=== PATIENT | female | born 1990 | race Caucasian/White ===

== ENCOUNTER 2023-07-11 16:03 | Emergency (ER) | payer SELFPAY ==
[2023-07-11 17:44] LABS: BASOPHILS ABSOLUTE AUTO 0.04 K/uL (0.00-0.20); BASOPHILS PERCENT AUTO 0.4 % (0.0-1.0); EOSINOPHILS ABSOLUTE AUTO 0.08 K/uL (0.00-0.45); EOSINOPHILS PERCENT AUTO 0.8 % (0.0-6.0); HEMATOCRIT 38.8 % (37.0-47.0); HEMOGLOBIN 13.8 g/dL (12.0-16.0); IMMATURE GRAN ABSOLUTE AUTO 0.05 K/uL (0.00-0.05); IMMATURE GRAN PERCENT AUTO 0.5 % (0.0-0.4); LYMPHOCYTES ABSOLUTE AUTO 2.44 K/uL (1.00-4.80); LYMPHOCYTES PERCENT AUTO 25.4 % (24.0-44.0); MEAN CORPUSCULAR HEMOGLOBIN 31.1 pg (28.0-32.0); MEAN CORPUSCULAR HGB CONC 35.6 g/dL (32.0-36.0); MEAN CORPUSCULAR VOLUME 87.4 fL (83.0-99.0); MEAN PLATELET VOLUME 10.1 fL (9.4-12.3); MONOCYTES ABSOLUTE AUTO 0.62 K/uL (0.00-0.80); MONOCYTES PERCENT AUTO 6.4 % (0.0-8.0); NEUTROPHILS ABSOLUTE AUTO 6.39 K/uL (1.80-7.70); NEUTROPHILS PERCENT AUTO 66.5 % (41.0-71.0); PLATELET COUNT,PLT 254 K/uL (150-400); RED BLOOD CELL COUNT 4.44 M/uL (4.10-5.30); WHITE BLOOD CELL COUNT,WBC 9.62 K/uL (3.9-11.3)
[2023-07-11 17:45] LABS: BILIRUBIN,URINE NEGATIVE (NEGATIVE); COLOR,URINE YELLOW; GLUCOSE,URINE NEGATIVE (NEGATIVE); KETONES,URINE NEGATIVE (NEGATIVE); LEUKOCYTE ESTERASE,URINE NEGATIVE (NEGATIVE); NITRITE,URINE NEGATIVE (NEGATIVE); OCCULT BLOOD,URINE MODERATE (NEGATIVE); PROTEIN,URINE NEGATIVE (NEGATIVE)
[2023-07-11 17:52] LABS: APPEARANCE,URINE CLOUDY
[2023-07-11 18:13] LABS: BACTERIA,URINE FEW (NEGATIVE); EPITHELIAL CELLS,URINE MODERATE (NONE-FEW); WBC,URINE 0-1 (0-5/HPF)
[2023-07-11 18:18] LABS: A/G RATIO 1.1 (0.9-1.6); ALBUMIN 4.1 g/dL (3.4-5.0); BILIRUBIN TOTAL 0.5 mg/dL (0.2-1.0); CALCIUM 9.5 mg/dL (8.5-10.1); CREATININE 0.8 mg/dL (0.6-1.0); POTASSIUM,K 3.7 mmol/L (3.5-5.1); PROTEIN TOTAL,TP 7.7 g/dL (6.4-8.2)
== END 2023-07-11 18:52 | disposition home or self-care (01) ==
LOC: MW.ED 16:03
DX: O20.9 Hemorrhage in early pregnancy, unspecified (principal); Z3A.00 Weeks of gestation of pregnancy not specified
CPT/HCPCS: 36415; 76801; 76801-26; 80053; 81001; 84702; 85025; 86850; 86900; 86901; 99282; 99284